=== PATIENT | female | born 1955 | race American Indian/Alaskan Native ===

== ENCOUNTER 2017-05-04 06:12 | Day surgery (SDC) | payer BC, OTHER ==
[2017-05-04] MEDS ORDERED: ECOTRIN PO ONE (06:36)
[2017-05-04] MEDS ORDERED: NACL 0.9% 500 ML 500 ML IV SCH (07:00)
[2017-05-04 07:22] LABS: Basophils % (Auto) 0.7 % (0.0-1.8); Eosinophils % (Auto) 5.4 % (0.0-4.3); Hematocrit 36.8 % (30.3-42.9); Mean Corpuscular HGB Conc 33 % (30-34); Mean Corpuscular Hemoglobin 28 pg (28-32); Mean Corpuscular Volume 85 fl (79-97); Platelet Count 256 K/mm3 (140-440); Red Blood Count 4.32 M/mm3 (3.65-5.03); White Blood Count 5.3 K/mm3 (4.5-11.0)
[2017-05-04 07:39] LABS: Anion Gap 13 mmol/L; Blood Urea Nitrogen 16 mg/dL (7-17); Calcium 9.4 mg/dL (8.4-10.2); Carbon Dioxide 27 mmol/L (22-30); Chloride 104.3 mmol/L (98-107); Glucose 106 mg/dL (65-100); Potassium 4.3 mmol/L (3.6-5.0); Sodium 140 mmol/L (137-145)
[2017-05-04 07:52] LABS: INR 0.95 (0.87-1.13)
[2017-05-04] MEDS ORDERED: HEPARIN/NS 5000 UNIT/500ML(CATH LAB) 1,000 ML IR ONE (08:15)
[2017-05-04] MEDS ORDERED: CALAN ONE (08:16)
[2017-05-04] MEDS ORDERED: NITROGLYCERIN SYRINGE 0 ML ONE (08:16)
[2017-05-04] MEDS ORDERED: HEPARIN 10,000 UNITS/10 ML ONE (08:16)
[2017-05-04] MEDS ORDERED: HEPARIN/NS 5000 UNIT/500ML(CATH LAB) 500 ML IR ONE (09:12)
[2017-05-04] MEDS: VERSED ONE ×3 (09:33→09:50)
[2017-05-04] MEDS: XYLOCAINE 2% INFILTRATI ONE ×3 (09:44→09:52)
[2017-05-04] MEDS: SUBLIMAZE ONE ×3 (09:44→09:51)
--- NOTE | 2017-05-04 10:56 | Discharge Summary ---
Short Stay Discharge Plan Activity: advance as tolerated Weight Bearing Status: Partial Weight Bearing Diet: low fat, low cholesterol, low salt Wound: keep clean and dry Special Instructions: no heavy lifting (3 days) Follow up with: MONI CHAMPAGNE MD [Primary Care Provider] - 7 Days MAURO MARTINEZ MD [Staff Physician] - 7 Days
[2017-05-04] MEDS ORDERED: NACL 0.9% 1000 ML 1,000 ML IV SCH (11:00)
[2017-05-04] MEDS ORDERED: TYLENOL ONE (12:36)
[2017-05-04] MEDS ORDERED: TYLENOL PO PRN (12:36)
--- NOTE | 2017-05-04 13:58 | Operative Report ---
Operative Report Operative Report: Cardiac catheterization procedure report Patient is a 61-year-old woman who presents for an outpatient cardiac catheterization. 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 Right and left heart catheterization was recommended. Procedures: Right and left heart catheterization Coronary angiography Left ventricular angiography The patient was prepped and draped in a sterile fashion after informed consent. The right femoral arterial vein were entered using the standard technique. A 6 Kazakh sheath was placed in the artery and an 8 Kazakh sheath in the vein. Right heart catheterization was performed using a [place]-Jeanette catheter which was advanced to the pulmonary artery position. A #4 right Ludmila catheter was advanced into the left ventricle. Simultaneous right and left heart filling pressures were measured. Cardiac output was measured using the thermal dilution method. The right heart catheter was then withdrawn and pressures measured in the right ventricle and right atrial positions. Following this, ventricle angiography was then performed with a hand injection via the right Ludmila catheter. The right Ludmila catheter was then withdrawn from the ventricle, slowly from the apical position, through the mid ventricle, through the outflow tract and across the aortic valve. Pressures were measured in these various positions. The right Ludmila catheter was used for right coronary angiography, following which we exchanged for a left Ludmila catheter was used for left carotid angiography. Catheters were removed, sheath removed and hemostasis over the arterial position achieved using an Angio-Seal device. Manual compression was used for the venous site. Patient was returned to the post procedure unit in stable condition. There were no effusions. Findings: Hemodynamics The right atrial pressure was 18-20, right ventricle pressure 50/20. Pulmonary artery pressure was 50/30. The mean pulmonary artery wedge pressure was 25. Left ventricle end-diastolic pressure was 25-30. Cardiac output was 5.7 L/m. Ascending aortic pressure was 174/84. On serial pullback from the left ventricular apex, through the mid cavity, through the outflow tract and across the aortic valve, there was minimal to no significant pressure gradient. Coronary angiography: Left main coronary artery was angiographically normal. The left anterior descending artery and its diagonal branches were angiographically normal. Minimal irregularities were noted of the mid LAD. The circumflex artery and its obtuse marginal branches were angiographically normal. The right coronary artery was dominant and similarly angiographically normal. Ventricle angiography revealed left ventricular systolic function at lower limits of normal, ejection fraction 50%. Impression: Moderate to severe increase in right and left heart filling pressures, moderate pulmonary hypertension. No significant intraventricular or left ventricular outflow tract gradient on catheter pullback. No significant coronary artery disease, essentially, angiographically normal coronary arteries. Left ventricle is of function at the lower limits of normal, ejection fraction 50%.
[2017-05-04 14:53] VITALS: BP 171/69
== END 2017-05-04 15:55 | disposition home or self-care (01) ==
LOC: OPU 06:12
PROVIDERS: ATTEND Internal Medicine Cardiovascular Disease
DX: I27.2 Other secondary pulmonary hypertension (principal)
CPT/HCPCS: 36415; 80048; 85025; 85610; 85730; 93005; 93010; 93460; C1760; C1894; J1644; J2250; J3010; J7040; Q9967

== ENCOUNTER 2018-03-11 06:30 | Emergency (ER) | payer BC ==
[2018-03-11 07:19] VITALS: BP 119/64
[2018-03-11 07:43] LABS: Hematocrit 25.9 % (30.3-42.9); Hemoglobin 8.6 gm/dl (10.1-14.3); Mean Corpuscular HGB Conc 33 % (30-34); Mean Corpuscular Hemoglobin 27 pg (28-32); Mean Corpuscular Volume 82 fl (79-97); Platelet Count 652 K/mm3 (140-440); Red Blood Count 3.16 M/mm3 (3.65-5.03); Red Cell Distribution Width 14.5 % (13.2-15.2)
[2018-03-11 07:51] LABS: BUN/Creatinine Ratio 9; Blood Urea Nitrogen 7 mg/dL (7-17); Calcium 8.9 mg/dL (8.4-10.2); Hemolysis Index 0
== END 2018-03-11 09:14 | disposition left against medical advice (07) ==
LOC: ED 06:30
DX: Z48.01 Encounter for change or removal of surgical wound dressing (principal); I10 Essential (primary) hypertension; M19.90 Unspecified osteoarthritis, unspecified site; Z88.5 Allergy status to narcotic agent; Z53.21 Procedure and treatment not carried out due to patient leaving prior to being seen by health care provider
CPT/HCPCS: 36415; 80048; 85027; 87116

== ENCOUNTER 2018-03-11 10:22 | Outpatient (CLI) | payer BC ==
--- NOTE | 2018-03-11 14:17 | Cat Scan Report ---
FINAL REPORT EXAM: CT ABDOMEN PELVIS W CON HISTORY: INTESTINAL ADHESIONS WITH COMPLETE OBSTRUCTION TECHNIQUE: CT of the abdomen and pelvis with IV contrast. Coronal and sagittal reconstructed imaging provided. PRIORS: None currently available. FINDINGS: ABDOMEN: Partially imaged moderate to large left pleural effusion with adjacent compressive atelectasis identified. Mild scarring or discoid subsegmental atelectasis at the right lung base. Images of the heart are unremarkable. Subcapsular fluid collection at the upper posterior spleen measures 4.5 x 8.5 cm and may represent a subcapsular hematoma seroma, or developing abscess. Uniform enhancement of the spleen is otherwise noted. Mild fatty liver. No suspicious enhancement or lesions. Gallbladder, stomach, pancreas, adrenals, and kidneys are unremarkable. No hydronephrosis. Adjacent to the pancreatic tail, there is a small fluid collection with wall thickening and rim enhancement which may represent a small abscess, pseudocyst, or seroma. Adjacent to the 4th portion of the duodenum/jejunum is another rim enhancing fluid collection with irregular wall measuring 2.6 x 2.2 cm. In the lower midline abdomen at the level of the bifurcation there is a lobulated rim enhancing fluid collection measuring 7.9 x 4.6 cm with surrounding stranding. Nearby surgical clips identified. The moderate distended proximal small bowel loops demonstrate an abrupt transition here near the surgical clip suggesting a high-grade incomplete or developing complete obstruction. Air-fluid levels in the small bowel loops identified. Another complex fluid collection with gas and surrounding irregular rim enhancement is noted anterior to the uterus extending into the left adnexa and into the posterior uterus. The anterior collection measures 9.5 x 1.9 cm. The collection in the left adnexa measures 10.4 x 3.3 cm and the collection in the cul-de-sac measures 7.7 x 6.6 cm. Small abscess in the right colonic gutter measures 2.2 cm. Diastasis recti with a broad-based protrusion. Right ventral anterior abdominal wall irregular fluid collection with rim enhancement measures 7.5 x 5.9 cm. Pocket of free air in the diastasis recti and stranding toward the umbilicus noted. Focal area of dehiscence may be present. Subcutaneous gas in the left paramedian left lower quadrant soft tissues with stranding extending to the surface of the skin suggest a focal area of dehiscence. No nearby skin thickening noted. Another ventral wall abscess in the left mid abdomen on series 3:29 measures 4.3 x 1.7 cm. Thickening of the abdominus rectus muscle bilaterally in the lower half of the abdomen suggest myositis and or postsurgical changes. [id number] stool throughout the colon without wall thickening or inflammatory changes. Appendix is normal. Terminal ilium is unremarkable. High-grade incomplete or developing complete obstruction of the proximal small bowel loops with a transition point at the mid abdominal abscess where surgical clips are present. The remainder of the distal small bowel loops demonstrate contrasts and are decompressed. Mild anasarca noted. PELVIS: Images of the bladder are unremarkable. Images of the uterus are unremarkable. No pelvic adenopathy. Inguinal regions are unremarkable. Bones: No suspicious osseous lesions on this limited examination of the skeleton. Metastatic disease better evaluated with bone scan. Degenerative changes are in the spine. IMPRESSION: Multiple intra-abdominal and pelvic abscesses. Stranding of the anterior abdominal wall suggests cellulitis and myositis. Small amount of free air identified. Stranding extending to the skin around the umbilicus and the left lower quadrant soft tissues suggests focal areas of dehiscence. Largest abscesses are present within the mid abdomen and pelvis. High-grade incomplete or developing complete obstruction of the proximal small bowel loops with transition point in the mid abdomen where surgical artifacts and a intra-abdominal abscess is present. Moderate to large partially imaged left pleural effusion with adjacent compressive atelectasis. Possible infiltrates. Sub capsular fluid collection at the spleen may represent abscess, seroma, or possible subcutaneous hematoma. Mild fatty liver.
== END 2018-03-11 10:23 | disposition home or self-care (01) ==
LOC: CT 10:22
PROVIDERS: ATTEND Surgery
DX: K56.52 Intestinal adhesions [bands] with complete obstruction (principal); L02.211 Cutaneous abscess of abdominal wall; K63.0 Abscess of intestine; J90 Pleural effusion, not elsewhere classified; J98.11 Atelectasis; K76.0 Fatty (change of) liver, not elsewhere classified; M47.9 Spondylosis, unspecified
CPT/HCPCS: 74177; Q9967

== ENCOUNTER 2018-03-16 07:46 | Day surgery (SDC) | payer BC ==
[2018-03-16] MEDS ORDERED: VERSED IV NR (08:25)
[2018-03-16 08:56] LABS: Basophils # (Auto) 0.1 K/mm3 (0.0-0.1); Basophils % (Auto) 0.5 % (0.0-1.8); Eosinophils # (Auto) 0.2 K/mm3 (0.0-0.4); Eosinophils % (Auto) 1.2 % (0.0-4.3); Hematocrit 25.6 % (30.3-42.9); Hemoglobin 8.2 gm/dl (10.1-14.3); Lymphocytes % (Auto) 14.1 % (13.4-35.0); Mean Corpuscular HGB Conc 32 % (30-34); Mean Corpuscular Volume 81 fl (79-97); Monocytes # (Auto) 1.7 K/mm3 (0.0-0.8); Monocytes % (Auto) 12.3 % (0.0-7.3); Platelet Count 756 K/mm3 (140-440); Red Blood Count 3.18 M/mm3 (3.65-5.03); Red Cell Distribution Width 14.7 % (13.2-15.2)
[2018-03-16] MEDS ORDERED: SODIUM CHLORIDE FLUSH SYRINGE 10 ML IV NR (09:00)
[2018-03-16 09:05] LABS: BUN/Creatinine Ratio 8; Blood Urea Nitrogen 8 mg/dL (7-17); Calcium 9.3 mg/dL (8.4-10.2); Hemolysis Index 100
[2018-03-16 09:06] LABS: INR 1.2 (0.87-1.13)
[2018-03-16 09:07] LABS: Partial Thromboplastin Time 37.4 Sec. (24.2-36.6)
[2018-03-16 09:19] LABS: Mean Corpuscular Hemoglobin 26 pg (28-32)
--- NOTE | 2018-03-16 10:42 | Short Stay Summary ---
Short Stay Documentation Date of service: 03/16/18 - History Principal diagnosis: Abscess, pleural fluid Past Surgical History: bowel surgery Social history: no significant social history - Allergies and Medications Current Medications: Allergies codeine Allergy (Verified 02/05/16 07:51) Unknown Home Medications Medication Instructions Recorded Confirmed Last Taken Type Lisinopril [Zestril TAB] 40 mg PO QDAY 02/05/16 03/16/18 05/03/17 History NIFEdipine XL [Procardia Xl] 90 mg PO QDAY 02/05/16 03/16/18 05/03/17 History Zolpidem [Ambien] 5 mg PO QHS PRN #30 tablet 02/26/18 03/16/18 Unknown Rx oxyCODONE [Roxicodone TAB] 5 mg PO Q6H PRN #14 tablet 02/26/18 03/16/18 Unknown Rx Ipratropium/Albuterol Sulfate 1 ampul IH TIDRT 30 Days ampul.neb 03/01/1803/16 Unknown Rx [DUONEB *Not for PRN Use*] Hydrochlorothiazide [HCTZ] 25 mg PO DAILY 03/16/18 03/16/18 Unknown History Sulfamethoxazole/Trimethoprim 1 tab PO BID 03/16/18 03/16/18 Unknown History [Bactrim DS TAB] Active Medications Fentanyl (Sublimaze) 100 mcg IV ONCE ONE Stop: 03/16/18 08:26 Midazolam HCl (Versed) 5 mg IV ONCE ONE Stop: 03/16/18 08:26 Sodium Chloride (Sodium Chloride Flush Syringe 10 Ml) 10 ml IV PRN NR - Physical exam General appearance: no acute distress, obese Integumentary: no rash HEENT: Atraumatic Lungs: Normal air movement Breasts: deferred Heart: Regular rate Gastrointestinal: normal, other (post surgical changes) Female Genitourinary: deferred Rectal Exam: deferred Neurological: Normal gait, Normal speech - Brief post op/procedure progress note Date of procedure: 03/16/18 Pre-op diagnosis: Abscess, pleural fluid Post-op diagnosis: same Procedure: Thoracentesis, drain placement Anesthesia: local Surgeon: CHRISTEN RAMIRES Estimated blood loss: minimal Specimen disposition: to lab Condition: stable - Disposition Condition at discharge: Good Disposition: [id number] TO HOME OR SELFCARE Short Stay Discharge Plan Activity: advance as tolerated Weight Bearing Status: Weight Bear as Tolerated Diet: regular Wound: keep clean and dry, per your surgeon's advice Follow up with: MONI CHAMPAGNE MD [Primary Care Provider] - 7 Days
[2018-03-16] MEDS ORDERED: SUBLIMAZE IV NR (11:00)
--- NOTE | 2018-03-16 11:12 | Cat Scan Report ---
Exam: CT-guided thoracentesis Clinical indication: Patient with a history of left pleural fluid Date: 03/16/2018 Procedure: Following an estimation of the risks benefits and alternatives; written informed consent was obtained. The patient was brought to the CT suite and placed in oblique position on the examination table. Initial timber treating tank operator images of the chest were performed and oral fluid was identified within the left pleural space. Patient's left flank was prepped and draped in the usual sterile fashion. 1% lidocaine was used for anesthesia. Using intermittent CT guidance, a 5 Vietnamese pigtail Yueh catheter was advanced into the pleural fluid. The trocar was removed and a total of 350 of serosanguineous fluid was aspirated. A sample was sent for cytology. The pigtail Yueh was removed and hemostasis achieved at the skin surface using manual compression. A sterile dressing was applied. Yueh The patient tolerated the procedure well. There were no immediate post procedure complications. Conscious sedation was performed under the guidance of radiologic nursing. Continuous cardiopulmonary monitoring was utilized. Impression: CT-guided thoracentesis with 350 mL's of serosanguineous fluid aspirated. Samples were sent for cytology.
--- NOTE | 2018-03-16 11:17 | Cat Scan Report ---
EXAM: CT-GUIDED DRAINAGE OF PELVIC ABSCESS CLINICAL INDICATION: PATIENT WITH MULTIPLE INTERCONNECTED PELVIC ABSCESSES DATE: 03/16/2018 PROCEDURE: Following examination of the risks, benefits and alternatives; written informed consent was obtained. This procedure is a continuation of the patient's previously dictated left thoracentesis. Following the successful left thoracentesis, attention was then turned to the abdomen. Initial stripping machine operator images the abdomen was performed and a multiloculated fluid collection in the pelvis was identified. An appropriate site was chosen along the left lower quadrant. The patient's abdomen was prepped and draped in the usual sterile fashion. 1% lidocaine was used for anesthesia. Under intermittent CT guidance, a 18-gauge 15 cm trocar needle was advanced into the fluid collection. There was prompt return of purulent fluid. A 0.035 guidewire was advanced through the needle and coiled within the fluid collection. The needle was removed. Following serial dilation, an 8 E[place]an pigtail catheter was advanced over the guidewire and the pigtail formed within the central aspect of the fluid collection. A total of 150 mL's of purulent fluid was aspirated. A sample was sent for laboratory analysis. The catheter was securely fastened to the skin surface using 2-0 Ethilon suture and a stable 6 device. The catheter was placed to ATUL bulb drainage. A sterile dressing was then applied. The patient tolerated both procedures well. There were no immediate post procedure complications. Conscious sedation or was administered under the guidance of radiologic nursing. Continuous cardiopulmonary monitoring was utilized. IMPRESSION: 1) CT-guided placement of 8 Eritrean pigtail drainage catheter into pelvic abscess with 150 mL's of purulent fluid aspirated. Samples were sent for laboratory analysis.
--- NOTE | 2018-03-16 12:27 | XRay Report ---
AP CHEST: HISTORY: Status post thoracentesis, left pleural effusion Recent CT-guided left thoracentesis was performed. Near-complete evacuation of the left pleural fluid is demonstrated. No evidence for pneumothorax. Mild discoid atelectasis is identified lateral to the right hilum. Minor atelectatic changes at the left lung base. Heart and mediastinal structures are within normal limits. IMPRESSION: No evidence for pneumothorax.
[2018-03-16 13:00] VITALS: BP 100/48
== END 2018-03-16 13:40 | disposition home or self-care (01) ==
LOC: CATHLABREC 07:46
PROVIDERS: ATTEND Radiology Diagnostic Radiology
DX: N73.9 Female pelvic inflammatory disease, unspecified (principal); J94.8 Other specified pleural conditions; Z79.01 Long term (current) use of anticoagulants
CPT/HCPCS: 10160; 32555; 36415; 71045; 77012; 80048; 85025; 85610; 85730; 87116; 88112; 88305; C1769; J2250; J3010

== ENCOUNTER 2018-03-24 11:41 | Outpatient (CLI) | payer BC ==
[2018-03-24 12:07] LABS: Basophils % (Auto) 0.4 % (0.0-1.8); Eosinophils # (Auto) 0.2 K/mm3 (0.0-0.4); Eosinophils % (Auto) 1.5 % (0.0-4.3); Hematocrit 26.1 % (30.3-42.9); Hemoglobin 8.6 gm/dl (10.1-14.3); Lymphocytes % (Auto) 16.3 % (13.4-35.0); Mean Corpuscular HGB Conc 33 % (30-34); Mean Corpuscular Hemoglobin 26 pg (28-32); Mean Corpuscular Volume 79 fl (79-97); Monocytes # (Auto) 0.9 K/mm3 (0.0-0.8); Monocytes % (Auto) 7.7 % (0.0-7.3); Platelet Count 797 K/mm3 (140-440); Red Blood Count 3.28 M/mm3 (3.65-5.03); Red Cell Distribution Width 14.9 % (13.2-15.2)
[2018-03-24 12:27] LABS: BUN/Creatinine Ratio 6; Blood Urea Nitrogen 4 mg/dL (7-17); Calcium 9.3 mg/dL (8.4-10.2); Hemolysis Index 2
== END 2018-03-24 11:42 | disposition home or self-care (01) ==
LOC: LAB 11:41
PROVIDERS: ATTEND Surgery
DX: K56.52 Intestinal adhesions [bands] with complete obstruction (principal); R79.89 Other specified abnormal findings of blood chemistry; Z98.890 Other specified postprocedural states
CPT/HCPCS: 36415; 80048; 84134; 85025

== ENCOUNTER 2018-03-28 08:56 | Inpatient (IN) | payer BC ==
[2018-03-28] MEDS ORDERED: MILK OF MAGNESIA PO PRN (09:00)
[2018-03-28] MEDS ORDERED: ZOFRAN IV PRN (09:00)
[2018-03-28] MEDS ORDERED: SODIUM CHLORIDE FLUSH SYRINGE 10 ML IV PRN (09:00)
[2018-03-28] MEDS ORDERED: TYLENOL PO PRN (09:00)
[2018-03-28] MEDS ORDERED: MORPHINE IV PRN (09:00)
[2018-03-28 12:40] LABS: Basophils % (Auto) 0.4 % (0.0-1.8); Eosinophils # (Auto) 0.3 K/mm3 (0.0-0.4); Eosinophils % (Auto) 3.5 % (0.0-4.3); Hematocrit 25.9 % (30.3-42.9); Hemoglobin 8.6 gm/dl (10.1-14.3); Lymphocytes # (Auto) 2.1 K/mm3 (1.2-5.4); Lymphocytes % (Auto) 21.8 % (13.4-35.0); Mean Corpuscular HGB Conc 33 % (30-34); Mean Corpuscular Hemoglobin 26 pg (28-32); Mean Corpuscular Volume 79 fl (79-97); Monocytes % (Auto) 10.3 % (0.0-7.3); Platelet Count 748 K/mm3 (140-440); Red Blood Count 3.29 M/mm3 (3.65-5.03); Red Cell Distribution Width 15.3 % (13.2-15.2)
[2018-03-28 12:45] LABS: INR 1.19 (0.87-1.13); Partial Thromboplastin Time 36.9 Sec. (24.2-36.6)
[2018-03-28 12:46] LABS: BUN/Creatinine Ratio 9; Blood Urea Nitrogen 6 mg/dL (7-17); Calcium 9.3 mg/dL (8.4-10.2); Hemolysis Index 0
[2018-03-28] MEDS: PEPCID IV SCH ×2 (13:14→22:42)
[2018-03-28] MEDS: SODIUM CHLORIDE FLUSH SYRINGE 10 ML IV SCH ×2 (13:15→22:42)
[2018-03-28] MEDS ORDERED: LOVENOX SUB-Q ONE (14:00)
--- NOTE | 2018-03-28 16:32 | XRay Report ---
FINAL REPORT EXAM: XR CHEST 1V AP HISTORY: R arm PICC placement TECHNIQUE: Frontal chest x-ray. PRIORS: Chest x-ray February 27, 2018. FINDINGS: Cardiac silhouette is within normal limits. Left perihilar peribronchial thickening. Left pleural effusion with adjacent area of focal subsegmental atelectasis and or infiltrate. Appearance is decreased compared to the prior. No pneumothorax. Right lung remains clear. There are no suspicious osseous lesions. Right PICC line tip is near the cavoatrial junction. IMPRESSION: Left pulmonary findings may represent effusion with adjacent infiltrate or subsegmental atelectasis. Left peribronchial thickening may represent bronchitis/bronchiolitis, pneumonia, or asymmetrical left pulmonary vascular congestion. Overall decreased compared to prior.
--- NOTE | 2018-03-28 17:56 | History and Physical Report ---
History of Present Illness Date of examination: 03/28/18 Date of admission: 03/28/18 11:19 Chief complaint: Poor appetite History of present illness: 62-year-old female who was well-known to our service was directly admitted to the hospital due to malnutrition, poor oral intake, recurrent fevers, and multiple fluid collections. She originally presented on 02/17 with a bowel obstruction. She failed conservative management and was ultimately taken to the operating room. 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 That bowel was found to be completely necrotic and perforated. She ultimately ended up undergoing a resection with primary anastomosis. She was discharged from the hospital, but has had failure to complete her recovery. Her oral intake has remained poor. On subsequent CT examination, she was found to have a left pleural effusion as well as multiple fluid collections in the abdomen. She underwent a left thoracentesis by interventional radiology as well as a drain placement in the pelvis. She was seen weekly in the office. Each time, she reported that she felt as though she was getting better. Most recently, she reported that she was having recurrent fevers in the afternoon. Her oral intake remained minimal. However she was hydrating well. Bowel function was normal. She had no nausea or vomiting. Routine labs were ordered due to concerns about possible malnutrition. Pre-albumin was noted to be 10. White count was improved but still elevated at 12. Electrolytes were okay. In light of her wound care issues, malnutrition, poor oral intake, and the possible need for further drain placement, I requested that the patient come into the hospital so that we can hopefully resolve these issues and help her complete her recovery. Patient agreed. Of note, she was discharged on Levaquin for a presumed left lung and pneumonia. She completed a recent course of clindamycin and ciprofloxacin for the bacteria that grew out from her fluid aspiration. She reports that she is feeling better since the fluid under the umbilicus drained over the weekend. Past History Past Medical History: hypertension. denies: acute ME, diabetes Past Surgical History: , bowel surgery (small intestine resection and primary anastomosis and lysis of adhesions. ), Other (surgery for ectopic ) Social history: no significant social history, lives with family Family history: no significant family history Medications and Allergies Allergies Allergy/AdvReac Type Severity Reaction Status Date / Time codeine Allergy Unknown Verified 02/05/16 07:51 Home Medications Medication Instructions Recorded Confirmed Last Taken Type Lisinopril [Zestril TAB] 40 mg PO QDAY 02/05/16 03/16/18 05/03/17 History NIFEdipine XL [Procardia Xl] 90 mg PO QDAY 02/05/16 03/16/18 05/03/17 History Zolpidem [Ambien] 5 mg PO QHS PRN #30 tablet 02/26/18 03/16/18 Unknown Rx oxyCODONE [Roxicodone TAB] 5 mg PO Q6H PRN #14 tablet 02/26/18 03/16/18 Unknown Rx Ipratropium/Albuterol Sulfate 1 ampul IH TIDRT 30 Days ampul.neb 03/01/1803/16 Unknown Rx [DUONEB *Not for PRN Use*] Hydrochlorothiazide [HCTZ] 25 mg PO DAILY 03/16/18 03/16/18 Unknown History Sulfamethoxazole/Trimethoprim 1 tab PO BID 03/16/18 03/16/18 Unknown History [Bactrim DS TAB] oxyCODONE /ACETAMINOPHEN [Percocet 1 tab PO Q6HR PRN #20 tablet 03/16/18 Unknown Rx 5/325] Active Meds: Active Medications Acetaminophen (Tylenol) 650 mg PO Q4H PRN PRN Reason: Pain MILD(1-3)/Fever >100.5/PAREKH Acetaminophen/Hydrocodone Bitart ([place] 5/325) 2 each PO Q6H PRN PRN Reason: Pain, Moderate (4-6) Famotidine (Pepcid) 20 mg IV BID [facility] Last Admin: 03/28/18 13:14 Dose: 20 mg Magnesium Hydroxide (Milk Of Magnesia) 30 ml PO Q4H PRN PRN Reason: Constipation Morphine Sulfate (Morphine) 2 mg IV Q4H PRN PRN Reason: Pain, Moderate (4-6) Ondansetron HCl (Zofran) 4 mg IV Q8H PRN PRN Reason: Nausea And Vomiting Sodium Chloride (Sodium Chloride Flush Syringe 10 Ml) 10 ml IV BID [facility] Last Admin: 03/28/18 13:15 Dose: 10 ml Sodium Chloride (Sodium Chloride Flush Syringe 10 Ml) 10 ml IV PRN PRN PRN Reason: LINE FLUSH Review of Systems - Constitutional weight loss, fever, fatigue, poor appetite, no chills - Cardiovascular no chest pain, no orthopnea, no rapid/irregular heart beat - Respiratory no cough, no cough with sputum, no hemoptysis, no shortness of breath, no wheezing - Gastrointestinal abdominal pain (only at drain site), loss of appetite (but improving lately), no nausea, no vomiting, no diarrhea, no constipation - Genitourinary Genitourinary: no dysuria - Integumentary wounds (2 on abdominal wall), no rash Exam - General physical appearance Positive: well developed, no distress, no pain, other (she looks better) - Eyes Positive: normal occular movement - Respiratory Positive: normal expansion, normal respiratory effort, clear to auscultation - Cardiovascular Rhythm: regular - Abdomen Abdomen: Present: soft, bowel sounds normal, wound (lower midline wound is clean. Periumbilical wound with small cavity. No further drainage. No erythema. ), surgical scars (well healed), other (left ATUL drain with minimal thick yellow drainage). Absent: tender, distended, guarding, rigid - Neurologic Neurologic: alert and oriented to time, place and person, motor strength and sensation are grossly intact - Psychiatric Psychiatric: appropriate mood/affect, intact judgment & insight Results - Labs 03/28/18 12:02 03/28/18 12:02 Abnormal lab results 03/28/18 03/28/18 03/28/18 Range/Units 12:02 12:02 12:02 RBC 3.29 L (3.65-5.03) M/mm3 Hgb 8.6 L (10.1-14.3) gm/dl Hct 25.9 L (30.3-42.9) % MCH 26 L (28-32) pg RDW 15.3 H (13.2-15.2) % Plt Count 748 H (140-440) K/mm3 [place] % (Auto) 10.3 H (0.0-7.3) % [place] # 1.0 H (0.0-0.8) K/mm3 PT 15.8 H (12.2-14.9) Sec. INR 1.19 H (0.87-1.13) APTT 36.9 H (24.2-36.6) Sec. BUN 6 L (7-17) mg/dL Diabetes panel 03/28/18 Range/Units 12:02 Sodium 137 (137-145) mmol/L Potassium 4.3 (3.6-5.0) mmol/L Chloride 100.2 (98-107) mmol/L Carbon Dioxide 26 (22-30) mmol/L BUN 6 L (7-17) mg/dL Creatinine 0.7 (0.7-1.2) mg/dL Glucose 86 (65-100) mg/dL Calcium 9.3 (8.4-10.2) mg/dL Calcium panel 03/28/18 Range/Units 12:02 Calcium 9.3 (8.4-10.2) mg/dL Pituitary panel 03/28/18 Range/Units 12:02 Sodium 137 (137-145) mmol/L Potassium 4.3 (3.6-5.0) mmol/L Chloride 100.2 (98-107) mmol/L Carbon Dioxide 26 (22-30) mmol/L BUN 6 L (7-17) mg/dL Creatinine 0.7 (0.7-1.2) mg/dL Glucose 86 (65-100) mg/dL Calcium 9.3 (8.4-10.2) mg/dL Adrenal panel 03/28/18 Range/Units 12:02 Sodium 137 (137-145) mmol/L Potassium 4.3 (3.6-5.0) mmol/L Chloride 100.2 (98-107) mmol/L Carbon Dioxide 26 (22-30) mmol/L BUN 6 L (7-17) mg/dL Creatinine 0.7 (0.7-1.2) mg/dL Glucose 86 (65-100) mg/dL Calcium 9.3 (8.4-10.2) mg/dL - Imaging Chest x-ray: report reviewed, image reviewed CT scan - abdomen: image reviewed CT scan - pelvis: image reviewed Assessment and Plan - Patient Problems (1) Malnutrition following gastrointestinal surgery Current Visit: Yes Status: Acute Plan to address problem: Patient suffering from protein/calorie malnutrition as a result for G.I. surgery. Will have line placed and start TPN until oral intake is improved. Time=45min (2) Fever Current Visit: Yes Status: Acute Plan to address problem: Due to her recurrent fevers, I will ask infectious disease to consult. We will get their opinion as to whether she should remain on antibiotics. If so what kind and for how long. (3) Multiple wounds of skin Current Visit: Yes Status: Acute Plan to address problem: I will ask wound care to assist with the assessment and management. (4) Intraabdominal fluid collection Current Visit: Yes Status: Acute Plan to address problem: Will obtain a CT scan to reassess the fluid collections. We'll see if we can remove the current drain. We will see if the left upper quadrant fluid collection would benefit from a drain placement.
--- NOTE | 2018-03-28 17:57 | Cat Scan Report ---
FINAL REPORT EXAM: CT ABDOMEN PELVIS W CON HISTORY: Re-evaluate fluid collections TECHNIQUE: Spiral CT scanning of the abdomen and pelvis after the uneventful administration of IV contrast. Multiplanar reformations. PRIORS: 11 Mar 2018. FINDINGS: Abdomen: Visualized lung bases show patchy and partially confluent opacities bilaterally, left greater than right, decreased from comparison. Very small bilateral pleural effusions, left greater than right, also decreased. Left subpleural or possible perisplenic low-density fluid collection measuring 5.7 x 2.5 cm decreased in size. No radiopaque gallstones. Stomach incompletely or nondistended, with some wall and fold thickening, but no significant perigastric fat stranding. Liver without significant abnormality. Spleen without significant abnormality. Pancreas without significant abnormality. Kidneys without significant abnormality. Adrenal glands without significant abnormality. Pelvis: Soft tissue defect and probable postsurgical change in the left periumbilical abdominal wall, with very small, ring-enhancing fluid collection containing small gas bubble measuring approximately 2 x 1 cm in maximal cross-sectional diameter, more discrete or organized. Mild thickening of underlying left rectus abdominus muscle about the same. Percutaneous pigtail catheter noted in anterior aspect of left lower quadrant, with near complete resolution of ring-enhancing fluid collections noted previously. Very small, residual fluid collection noted in the pelvic cul-de-sac region measuring 2 x 1.4 cm in cross-sectional diameter. Postsurgical change and anastomosis in probable small bowel located in mid lower abdominopelvic region. Multiple loops of prominent small bowel and colon containing gas, fluid and considerable amount of stool without discrete transition point. No apparent pneumatosis. Appendix within normal limits. Generalized mesenteric fat stranding or possible edema scattered in the abdomen and pelvis. No significant free peritoneal fluid or significant adenopathy. Abdominal aorta non-aneurysmal. Degenerative changes in thoracolumbar spine. IMPRESSION: 1. Interval placement of percutaneous drainage catheter in left lower quadrant and near complete resolution of ring-enhancing fluid collections noted previously, with small residual in the pelvic cul-de-sac region. 2. Small fluid collection in left subpleural or possible perisplenic region, also decreased in size. 3. Nonspecific bowel gas pattern suggesting adynamic ileus, which may be reactive, secondary to constipation or associated with nonspecific postinflammatory change, including diarrhea or enteritis. Correlate clinically. 4. Findings which may represent bibasilar atelectasis, mild infiltrates or postinflammatory change and very small bilateral pleural effusions, decreased in the interval.
[2018-03-29] MEDS: NORCO 5/325 PO PRN (03:53)
[2018-03-29 07:13] LABS: BUN/Creatinine Ratio 7; Blood Urea Nitrogen 4 mg/dL (7-17); Calcium 8.9 mg/dL (8.4-10.2); Hemolysis Index 0
[2018-03-29] MEDS ORDERED: DIAMOX PO ONE (08:30)
[2018-03-29] MEDS: SODIUM CHLORIDE FLUSH SYRINGE 10 ML IV SCH ×2 (10:50→21:43)
[2018-03-29] MEDS: PEPCID IV SCH ×2 (10:50→21:43)
--- NOTE | 2018-03-29 12:34 | Consultation ---
History of Present Illness - Reason for Consult Consult date: 03/29/18 leukocytosis Requesting physician: LUNA AGUAYO - History of Present Illness 62 years old female with history of HTN and murmur; recently discharged from [facility] from 02/17-03/01/18 after partial small bowel obstruction. She failed conservative management and was ultimately taken to the operating room on . 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 That bowel was found to be completely necrotic and perforated. She ultimately ended up undergoing a resection with primary anastomosis. On subsequent CT examination, she was found to have a left pleural effusion as well as multiple fluid collections in the abdomen. She underwent a left thoracentesis by interventional radiology as well as a PC drain placement in the left pelvis. She was seen weekly in the Surgical office. Per patient she was having daily fever since discharged at 101. However , per surgical team she reported fever during last office visit. A CBC showed White count still elevated at 12. Of note, she was discharged on Levaquin for a presumed left lung and pneumonia. Also, she completed a recent course of clindamycin and ciprofloxacin for the bacteria that grew out from her fluid aspiration - Bacteroides, Prevotella on 03/11/18 and Strep not group D on . Unfortunately, patient was readmitted 03/28/2018 due to persistent fever, nausea, vomiting. Upon admission, initial temperature was 98.5, heart rate 72, respiration 20, O2 sat 99, low pressure 120/60. White count 9.9. Hemoglobin 8.6. Platelets 748. Creatinine 0.6. Chest x-ray showed left peribronchial thickening. CT of the abdomen show Percutaneous drain in the left lower lateral with near complete resolution of the ring enhancing fluid collection. There is still a perisplenic collection of 5.7 x 2.5 cm. There is also patchy bibasilar opacities. Microbiology: Blood cultures: 02/18 negative Urine cultures: 02/18 10-100K usual skin [place] Respiratory cultures: Wound cultures: 03/11 Bacteroides, Prevotella Surgical 03/16 Strep not group D Stool cultures: Other: Current Antimicrobials: none Previous Antimicrobials: clinda cipro Past History Past Medical History: hypertension. denies: acute [place], diabetes Past Surgical History: , bowel surgery (small intestine resection and primary anastomosis and lysis of adhesions. ), Other (surgery for ectopic ) Social history: no significant social history, lives with family Family history: no significant family history Medications and Allergies Allergies Allergy/AdvReac Type Severity Reaction Status Date / Time codeine Allergy Unknown Verified 02/05/16 07:51 Home Medications Medication Instructions Recorded Confirmed Last Taken Type Lisinopril [Zestril TAB] 40 mg PO QDAY 02/05/16 03/16/18 05/03/17 History NIFEdipine XL [Procardia Xl] 90 mg PO QDAY 02/05/16 03/16/18 05/03/17 History Zolpidem [Ambien] 5 mg PO QHS PRN #30 tablet 02/26/18 03/29/18 Unknown Rx oxyCODONE [Roxicodone TAB] 5 mg PO Q6H PRN #14 tablet 02/26/18 03/29/18 Unknown Rx Ipratropium/Albuterol Sulfate 1 ampul IH TIDRT 30 Days ampul.neb 03/01/1803/16 Unknown Rx [DUONEB *Not for PRN Use*] Hydrochlorothiazide [HCTZ] 25 mg PO DAILY 03/16/18 03/29/18 03/27/18 History Sulfamethoxazole/Trimethoprim 1 tab PO BID 03/16/18 03/16/18 Unknown History [Bactrim DS TAB] oxyCODONE /ACETAMINOPHEN [Percocet 1 tab PO Q6HR PRN #20 tablet 03/16/1803/27/18 Rx 5/325] Active Meds: Active Medications Acetaminophen (Tylenol) 650 mg PO Q4H PRN PRN Reason: Pain MILD(1-3)/Fever >100.5/PAREKH Acetaminophen/Hydrocodone Bitart ([place] 5/325) 2 each PO Q6H PRN PRN Reason: Pain, Moderate (4-6) Last Admin: 03/29/18 03:53 Dose: 2 each Famotidine (Pepcid) 20 mg IV BID ASHLEY Last Admin: 03/29/18 10:50 Dose: 20 mg Magnesium Hydroxide (Milk Of Magnesia) 30 ml PO Q4H PRN PRN Reason: Constipation Morphine Sulfate (Morphine) 2 mg IV Q4H PRN PRN Reason: Pain, Moderate (4-6) Ondansetron HCl (Zofran) 4 mg IV Q8H PRN PRN Reason: Nausea And Vomiting Sodium Chloride (Sodium Chloride Flush Syringe 10 Ml) 10 ml IV BID ASHLEY Last Admin: 03/29/18 10:50 Dose: 10 ml Sodium Chloride (Sodium Chloride Flush Syringe 10 Ml) 10 ml IV PRN PRN PRN Reason: LINE FLUSH Physical Examination - Physical Exam Narrative exam: General appearance: Alert in NAD, conversant Eyes: anicteric sclerae, moist conjunctivae; no lid-lag; PERRLA HENT: Atraumatic; oropharynx clear with moist mucous membranes and no mucosal ulcerations/no oral thrush; normal hard and soft palate. Normal external ears. Neck: Trachea midline; supple, no thyromegaly or lymphadenopathy Lungs: decrease BS bibasilar CV: RRR, ++ murmurs Abdomen: Soft, mild TTP diffusely + drain with minimal seropurulence Extremities: No peripheral edema or extremity lymphadenopathy Skin: Normal temperature, turgor and texture; no rash, ulcers or subcutaneous nodules Psych: Appropriate affect, alert and oriented to person, place and time. Neuro: alert and oriented x 3. Moving all extermities Lines: right PICC - Constitutional Vitals: Vital Signs Temp Pulse Resp BP Pulse Ox 98.5 F 61 20 124/68 99 03/29/18 07:12 03/29/18 07:12 03/29/18 07:12 03/29/18 07:12 03/29/18 07:12 Temperature -Last 24 Hours Temperature 98.5 F Temperature 99.3 F Results - Labs CBC & Chem 7: 03/28/18 12:02 03/29/18 06:43 Labs: Abnormal lab results 03/28/18 03/28/18 03/28/18 Range/Units 12:02 12:02 12:02 RBC 3.29 L (3.65-5.03) M/mm3 Hgb 8.6 L (10.1-14.3) gm/dl Hct 25.9 L (30.3-42.9) % MCH 26 L (28-32) pg RDW 15.3 H (13.2-15.2) % Plt Count 748 H (140-440) K/mm3 [place] % (Auto) 10.3 H (0.0-7.3) % [place] # 1.0 H (0.0-0.8) K/mm3 PT 15.8 H (12.2-14.9) Sec. INR 1.19 H (0.87-1.13) APTT 36.9 H (24.2-36.6) Sec. Sodium (137-145) mmol/L BUN 6 L (7-17) mg/dL Creatinine (0.7-1.2) mg/dL Glucose (65-100) mg/dL 03/29/18 Range/Units 06:43 RBC (3.65-5.03) M/mm3 Hgb (10.1-14.3) gm/dl Hct (30.3-42.9) % MCH (28-32) pg RDW (13.2-15.2) % Plt Count (140-440) K/mm3 [place] % (Auto) (0.0-7.3) % [place] # (0.0-0.8) K/mm3 PT (12.2-14.9) Sec. INR (0.87-1.13) APTT (24.2-36.6) Sec. Sodium 136 L (137-145) mmol/L BUN 4 L (7-17) mg/dL Creatinine 0.6 L (0.7-1.2) mg/dL Glucose 102 H (65-100) mg/dL Assessment and Plan Assessment: 1) Intra-abdominal collections: LLQ and perisplenic -S/P PC drain placement in the left pelvis -Drainage grew Bacteroides, Prevotella on 03/11/18 and Strep not group D on . -treated with cipro/clindamycin outpatient -repeat CT still a perisplenic collection of 5.7 x 2.5 cm and showed percutaneous drain in the left lower lateral with near complete resolution of the ring enhancing fluid collection 2) Recent fever and leukocytosis: resolved. Likely from #1 3) Thrombocytosis: from intra-abdominal collections 4) Partial small bowel obstruction/recent bowel necrosis/perforation -She failed conservative management and was ultimately taken to the operating room on 02/24/18. 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 That bowel was found to be completely necrotic and perforated. S/P resection with primary anastomosis. 5) Left pleural effusion s/p left thoracentesis 6) Murmur Plan: -obtain C-reactive protein (CRP) -start zosyn - covers Bacteroides, Prevotella and Strep not group D -remove drain -IR eval to determine if she needs drainage of perisplenic collection -TTE Thank you for your consultation, will follow up with you. Arlette Crews MD Infectious Diseases Specialist [facility] ([facility] M [phone] O [phone]
[2018-03-29] MEDS: ZOSYN/NS 4.5GM/100ML 4.5 GM/100 ML VIAL IV SCH ×2 (15:36→21:43)
--- NOTE | 2018-03-29 18:45 | Event Note ---
Date: 03/29/18 Requested to review splenic fluid collection. Splenic fluid collection along the upper pole of the spleen/diaphragm which would require a trans-pleural drain. Current collection is 2.1 x 2.9 x 5.4 cm containing aprox 16 mL fluid (03/28/18). Prior collection was 3.9 x 5.5 x 8.5 cm containing aprox 91 mL fluid (03/11/18). The associated sympathetic effusion has also decreased in size. Given the significant decrease in size with conservative care, I would recommend continuing antibiotics/conservative care without drainage to prevent the risk of contaminating the sympathetic infusion and creating an empyema. Discussed with Dr. Sanabria.
--- NOTE | 2018-03-29 18:49 | Progress Note ---
Assessment and Plan - Patient Problems (1) Malnutrition following gastrointestinal surgery Current Visit: Yes Status: Acute Plan to address problem: Patient suffering from protein/calorie malnutrition as a result for G.I. surgery. Start TPN until oral intake is improved. Time=15min (2) Fever Current Visit: Yes Status: Acute Plan to address problem: No fevers over last 24hours. Pt feels better. appreciate ID consult. Will follow recs (3) Multiple wounds of skin Current Visit: Yes Status: Acute Plan to address problem: Appreciate wound care evaluation and recs. Will have patient f/u in wound clinic upon discharge. (4) Intraabdominal fluid collection Current Visit: Yes Status: Acute Plan to address problem: Appreciate the recommendation from Dr. Grissom. I spoke with Dr. Newell about the remaining fluid collection in the left upper quadrant. Due to the location, there is a high risk of contaminating the pleural space. The collection has significantly decreased compared to the last CT scan. He recommends, and I agree, that he would be best to continue with antibiotics and let this resolve on its own. Subjective Date of service: 03/29/18 Patient Reports: Positive: feels better, tolerating liquids well, other ( appetite is still poor). Negative: nausea, vomiting Objective Vital Signs - 12hr 03/29/18 07:12 Temperature 98.5 F Pulse Rate 61 Respiratory 20 Rate Blood Pressure 124/68 O2 Sat by Pulse 99 Oximetry - General physical appearance no distress, no pain, other (looks very happy today - best I have seen!) - Eyes normal occular movement - Respiratory normal expansion, normal respiratory effort - Abdomen soft, not tender, bowel sounds normal, not distended, wound (wounds are dressed) , other (ATUL with minimal drainage) - Psychiatric oriented to time, oriented to person, oriented to place, speech is normal, memory intact - Labs 03/28/18 12:02 03/29/18 06:43 Diabetes panel 03/29/18 Range/Units 06:43 Sodium 136 L (137-145) mmol/L Potassium 3.9 (3.6-5.0) mmol/L Chloride 102.0 (98-107) mmol/L Carbon Dioxide 27 (22-30) mmol/L BUN 4 L (7-17) mg/dL Creatinine 0.6 L (0.7-1.2) mg/dL Glucose 102 H (65-100) mg/dL Calcium 8.9 (8.4-10.2) mg/dL Calcium panel 03/29/18 Range/Units 06:43 Calcium 8.9 (8.4-10.2) mg/dL Phosphorus 3.70 (2.5-4.5) mg/dL Pituitary panel 03/29/18 Range/Units 06:43 Sodium 136 L (137-145) mmol/L Potassium 3.9 (3.6-5.0) mmol/L Chloride 102.0 (98-107) mmol/L Carbon Dioxide 27 (22-30) mmol/L BUN 4 L (7-17) mg/dL Creatinine 0.6 L (0.7-1.2) mg/dL Glucose 102 H (65-100) mg/dL Calcium 8.9 (8.4-10.2) mg/dL Adrenal panel 03/29/18 Range/Units 06:43 Sodium 136 L (137-145) mmol/L Potassium 3.9 (3.6-5.0) mmol/L Chloride 102.0 (98-107) mmol/L Carbon Dioxide 27 (22-30) mmol/L BUN 4 L (7-17) mg/dL Creatinine 0.6 L (0.7-1.2) mg/dL Glucose 102 H (65-100) mg/dL Calcium 8.9 (8.4-10.2) mg/dL - Imaging CT scan - abdomen: report reviewed, image reviewed CT Scan - head: report reviewed, image reviewed
[2018-03-29] MEDS ORDERED: TPN ADULT 1,800 ML IV SCH (20:00)
[2018-03-29] MEDS: AMBIEN PO PRN (23:12)
[2018-03-30] MEDS: NORCO 5/325 PO PRN (05:40)
[2018-03-30] MEDS: ZOSYN/NS 4.5GM/100ML 4.5 GM/100 ML VIAL IV SCH ×3 (05:40→22:21)
[2018-03-30 06:42] LABS: Alanine Aminotransferase 22 units/L (7-56); Albumin 2.5 g/dL (3.9-5); BUN/Creatinine Ratio 7; Blood Urea Nitrogen 5 mg/dL (7-17); Hemolysis Index 0
--- NOTE | 2018-03-30 09:26 | Progress Note ---
Assessment and Plan Assessment: 1) Intra-abdominal collections: LLQ and perisplenic -S/P PC drain placement in the left pelvis -Drainage grew Bacteroides, Prevotella on 03/11/18 and Strep not group D on . -treated with cipro/clindamycin outpatient -repeat CT still a perisplenic collection of 5.7 x 2.5 cm and showed percutaneous drain in the left lower lateral with near complete resolution of the ring enhancing fluid collection -CRP=12.7 2) Recent fever and leukocytosis: resolved. Likely from #1 3) Thrombocytosis: from intra-abdominal collections 4) Partial small bowel obstruction/recent bowel necrosis/perforation -She failed conservative management and was ultimately taken to the operating room on 02/24/18. 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 That bowel was found to be completely necrotic and perforated. S/P resection with primary anastomosis. 5) Left pleural effusion s/p left thoracentesis 6) Murmur Plan: -Per Dr. Newell due to the location, there is a high risk of contaminating the pleural space. The collection has significantly decreased compared to the last CT scan. He recommends, and Dr Sanabria agrees, to continue with antibiotics and let this resolve on its own. -continue zosyn - covers Bacteroides, Prevotella and Strep not group D -TPN -TTE - pending -upon discharge will do zosyn 4.5 g IV q8h total 2-3 weeks until 04/18/18. Repeat CT on 04/11. ID clinic F/u on 04/14. 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 I am rounding on 04/01 Thank you for your consultation, will follow up with you. Arlette Crews MD Infectious Diseases Specialist [facility] [place] M [phone] O [phone] Subjective Date of service: 03/30/18 Principal diagnosis: fever/leukocytosis Interval history: Microbiology: Blood cultures: 02/18 negative Urine cultures: 02/18 10-100K usual skin [place] Respiratory cultures: Wound cultures: 03/11 Bacteroides, Prevotella Surgical 03/16 Strep not group D Stool cultures: Other: Current Antimicrobials: zosyn 03/29 Previous Antimicrobials: clinda cipro Objective - Exam Narrative Exam: General appearance: Alert in NAD, conversant Eyes: anicteric sclerae, moist conjunctivae; no lid-lag; PERRLA HENT: Atraumatic; oropharynx clear with moist mucous membranes and no mucosal ulcerations/no oral thrush; normal hard and soft palate. Normal external ears. Neck: Trachea midline; supple, no thyromegaly or lymphadenopathy Lungs: decrease BS bibasilar CV: RRR, ++ murmurs Abdomen: Soft, mild TTP diffusely + drain with minimal seropurulence Extremities: No peripheral edema or extremity lymphadenopathy Skin: Normal temperature, turgor and texture; no rash, ulcers or subcutaneous nodules Psych: Appropriate affect, alert and oriented to person, place and time. Neuro: alert and oriented x 3. Moving all extermities Lines: right PICC - Constitutional Vitals: Vital Signs Temp Pulse Resp BP Pulse Ox 97.9 F 77 19 101/68 98 03/30/18 07:30 03/30/18 07:30 03/30/18 07:30 03/30/18 07:30 03/30/18 07:30 Temperature -Last 24 Hours Temperature 97.9 F Temperature 98.6 F - Labs CBC & Chem 7: 03/28/18 12:02 03/30/18 05:55 Labs: Abnormal lab results 03/29/18 03/30/18 Range/Units 06:43 05:55 Sodium 135 L (137-145) mmol/L BUN 5 L (7-17) mg/dL Glucose 124 H (65-100) mg/dL C-Reactive Protein 12.70 H (0.00-1.30) mg/dL Albumin 2.5 L (3.9-5) g/dL
[2018-03-30] MEDS: PEPCID IV SCH ×2 (11:41→22:21)
[2018-03-30] MEDS: SODIUM CHLORIDE FLUSH SYRINGE 10 ML IV SCH ×2 (11:41→23:50)
--- NOTE | 2018-03-30 17:23 | Progress Note ---
Assessment and Plan - Patient Problems (1) Malnutrition following gastrointestinal surgery Current Visit: Yes Status: Acute Plan to address problem: Patient suffering from protein/calorie malnutrition as a result for G.I. surgery. Cont TPN until oral intake is improved. Advance to Regular diet. Time=15min (2) Intraabdominal fluid collection Current Visit: Yes Status: Acute Plan to address problem: Will monitor LUQ fluid collection. Repeat CT planned for 04/11. ATUL drain with minimal amount. If there is a scant amount or serous fluid coming out near the time of discharge, will remove drain prior to discharge. (3) Multiple wounds of skin Current Visit: Yes Status: Acute Plan to address problem: Appreciate wound care evaluation and recs. Will have patient f/u in wound clinic upon discharge. (4) Fever Current Visit: Yes Status: Resolved Plan to address problem: afebrile x 48hrs. Seems to have resolved. Appreciate ID help very much. Subjective Date of service: 03/30/18 Patient Reports: Positive: feels better (2nd day in a row!), tolerating liquids well (wants to try regular food now), flatus, bowel movement, other (minimal output from drain). Negative: nausea, vomiting Objective Vital Signs - 12hr 03/30/18 03/30/18 03/30/18 05:40 07:30 09:30 Temperature 97.9 F Pulse Rate 77 Respiratory 18 19 16 Rate Blood Pressure 101/68 O2 Sat by Pulse 98 97 Oximetry 03/30/18 14:50 Temperature 97.8 F Pulse Rate 71 Respiratory 20 Rate Blood Pressure 108/63 O2 Sat by Pulse 100 Oximetry - General physical appearance no distress, no pain, other (looks great!) - Eyes normal occular movement - Respiratory normal expansion, normal respiratory effort - Abdomen soft, not tender, not distended, not guarding, not rigid, wound (dressings are dry (changed 2x/week)), other (Minimal slightly thick yellow fluid in bulb) - Psychiatric oriented to time, oriented to person, oriented to place, speech is normal, memory intact - Labs 03/28/18 12:02 03/30/18 05:55 Diabetes panel 03/30/18 Range/Units 05:55 Sodium 135 L (137-145) mmol/L Potassium 3.7 (3.6-5.0) mmol/L Chloride 99.2 (98-107) mmol/L Carbon Dioxide 24 (22-30) mmol/L BUN 5 L (7-17) mg/dL Creatinine 0.7 (0.7-1.2) mg/dL Glucose 124 H (65-100) mg/dL Calcium 9.0 (8.4-10.2) mg/dL AST 17 (5-40) units/L ALT 22 (7-56) units/L Alkaline Phosphatase 104 (35-129) units/L Total Protein 7.5 (6.3-8.2) g/dL Albumin 2.5 L (3.9-5) g/dL Calcium panel 03/30/18 Range/Units 05:55 Calcium 9.0 (8.4-10.2) mg/dL Phosphorus 3.90 (2.5-4.5) mg/dL Albumin 2.5 L (3.9-5) g/dL Pituitary panel 03/30/18 Range/Units 05:55 Sodium 135 L (137-145) mmol/L Potassium 3.7 (3.6-5.0) mmol/L Chloride 99.2 (98-107) mmol/L Carbon Dioxide 24 (22-30) mmol/L BUN 5 L (7-17) mg/dL Creatinine 0.7 (0.7-1.2) mg/dL Glucose 124 H (65-100) mg/dL Calcium 9.0 (8.4-10.2) mg/dL Adrenal panel 03/30/18 Range/Units 05:55 Sodium 135 L (137-145) mmol/L Potassium 3.7 (3.6-5.0) mmol/L Chloride 99.2 (98-107) mmol/L Carbon Dioxide 24 (22-30) mmol/L BUN 5 L (7-17) mg/dL Creatinine 0.7 (0.7-1.2) mg/dL Glucose 124 H (65-100) mg/dL Calcium 9.0 (8.4-10.2) mg/dL Total Bilirubin 0.60 (0.1-1.2) mg/dL AST 17 (5-40) units/L ALT 22 (7-56) units/L Alkaline Phosphatase 104 (35-129) units/L Total Protein 7.5 (6.3-8.2) g/dL Albumin 2.5 L (3.9-5) g/dL
[2018-03-30] MEDS ORDERED: TPN ADULT 1,800 ML IV SCH (20:00)
[2018-03-30] MEDS: AMBIEN PO PRN (23:43)
[2018-03-31] MEDS: ZOSYN/NS 4.5GM/100ML 4.5 GM/100 ML VIAL IV SCH ×3 (06:22→22:04)
[2018-03-31] MEDS: PEPCID IV SCH ×2 (09:42→21:33)
[2018-03-31] MEDS: SODIUM CHLORIDE FLUSH SYRINGE 10 ML IV SCH ×2 (09:43→22:32)
[2018-03-31 10:44] LABS: BUN/Creatinine Ratio 9; Blood Urea Nitrogen 7 mg/dL (7-17); Calcium 9.2 mg/dL (8.4-10.2); Hemolysis Index 0
[2018-03-31] MEDS ORDERED: TPN ADULT 1,800 ML IV SCH (20:00)
--- NOTE | 2018-03-31 20:26 | Progress Note ---
Assessment and Plan - Patient Problems (1) Malnutrition following gastrointestinal surgery Current Visit: Yes Status: Acute Plan to address problem: Patient suffering from protein/calorie malnutrition as a result for G.I. surgery. Cont TPN until oral intake is improved. Advanced to Regular diet. I think that if she continues to eat very well, we may not have to send her home with TPN. Time=15min (2) Intraabdominal fluid collection Current Visit: Yes Status: Acute Plan to address problem: Will monitor LUQ fluid collection. Repeat CT planned for 04/11. ATUL drain with minimal amount. If there is a scant amount or serous fluid coming out near the time of discharge, will remove drain prior to discharge. (3) Multiple wounds of skin Current Visit: Yes Status: Acute Plan to address problem: Appreciate wound care evaluation and recs. Will have patient f/u in wound clinic upon discharge. Subjective Date of service: 03/31/18 Patient Reports: Positive: no new complaints, feels better (appetite has improved. Ate all of the breakfast!), afebrile. Negative: nausea, vomiting Objective Vital Signs - 12hr 03/31/18 03/31/18 08:30 14:58 Temperature 98.4 F Pulse Rate 73 Pulse Rate [ 63 Left Radial] Respiratory 20 18 Rate Blood Pressure 117/68 O2 Sat by Pulse 99 100 Oximetry - General physical appearance no distress, no pain, other (smiling) - Respiratory normal expansion, normal respiratory effort - Psychiatric oriented to time, oriented to person, oriented to place, speech is normal, memory intact - Labs 03/28/18 12:02 03/31/18 09:50 Diabetes panel 03/31/18 Range/Units 09:50 Sodium 144 D (137-145) mmol/L Potassium 4.2 (3.6-5.0) mmol/L Chloride 109.0 H (98-107) mmol/L Carbon Dioxide 24 (22-30) mmol/L BUN 7 (7-17) mg/dL Creatinine 0.8 (0.7-1.2) mg/dL Glucose 150 H (65-100) mg/dL Calcium 9.2 (8.4-10.2) mg/dL Calcium panel 03/31/18 Range/Units 09:50 Calcium 9.2 (8.4-10.2) mg/dL Phosphorus 3.20 (2.5-4.5) mg/dL Pituitary panel 03/31/18 Range/Units 09:50 Sodium 144 D (137-145) mmol/L Potassium 4.2 (3.6-5.0) mmol/L Chloride 109.0 H (98-107) mmol/L Carbon Dioxide 24 (22-30) mmol/L BUN 7 (7-17) mg/dL Creatinine 0.8 (0.7-1.2) mg/dL Glucose 150 H (65-100) mg/dL Calcium 9.2 (8.4-10.2) mg/dL Adrenal panel 03/31/18 Range/Units 09:50 Sodium 144 D (137-145) mmol/L Potassium 4.2 (3.6-5.0) mmol/L Chloride 109.0 H (98-107) mmol/L Carbon Dioxide 24 (22-30) mmol/L BUN 7 (7-17) mg/dL Creatinine 0.8 (0.7-1.2) mg/dL Glucose 150 H (65-100) mg/dL Calcium 9.2 (8.4-10.2) mg/dL
[2018-03-31] MEDS: AMBIEN PO PRN (23:55)
[2018-04-01] MEDS: ZOSYN/NS 4.5GM/100ML 4.5 GM/100 ML VIAL IV SCH ×3 (05:55→23:01)
[2018-04-01 07:31] LABS: Hematocrit 22.8 % (30.3-42.9); Mean Corpuscular HGB Conc 31 % (30-34); Mean Corpuscular Volume 82 fl (79-97); Platelet Count 596 K/mm3 (140-440); Red Blood Count 2.77 M/mm3 (3.65-5.03); Red Cell Distribution Width 15.7 % (13.2-15.2)
[2018-04-01 07:45] LABS: Alanine Aminotransferase 15 units/L (7-56); Albumin 2.2 g/dL (3.9-5); BUN/Creatinine Ratio 16; Blood Urea Nitrogen 13 mg/dL (7-17); Calcium 9.5 mg/dL (8.4-10.2); Hemolysis Index 0
[2018-04-01 07:50] LABS: Mean Corpuscular Hemoglobin 25 pg (28-32)
--- NOTE | 2018-04-01 08:16 | Event Note ---
Date: 04/01/18 Critical labs noted. Spoke with nurse, Rebecca. this is mostly likely blood drawn from TPN line. Recheck with new stick.
--- NOTE | 2018-04-01 09:46 | Progress Note ---
Assessment and Plan Assessment: 1) Intra-abdominal collections: LLQ and perisplenic -S/P PC drain placement in the left pelvis -Drainage grew Bacteroides, Prevotella on 03/11/18 and Strep not group D on . -treated with cipro/clindamycin outpatient -repeat CT still a perisplenic collection of 5.7 x 2.5 cm and showed percutaneous drain in the left lower lateral with near complete resolution of the ring enhancing fluid collection -CRP=12.7 2) Recent fever and leukocytosis: resolved. Likely from #1 3) Thrombocytosis: from intra-abdominal collections 4) Partial small bowel obstruction/recent bowel necrosis/perforation -She failed conservative management and was ultimately taken to the operating room on 02/24/18. 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 That bowel was found to be completely necrotic and perforated. S/P resection with primary anastomosis. 5) Left pleural effusion s/p left thoracentesis 6) Murmur-TTE EF normal, mod AR Plan: -Per Dr. Newell due to the location, there is a high risk of contaminating the pleural space. The collection has significantly decreased compared to the last CT scan. He recommends, and Dr Sanabria agrees, to continue with antibiotics and let this resolve on its own. -continue zosyn - covers Bacteroides, Prevotella and Strep not group D -TPN -upon discharge will do zosyn 4.5 g IV q8h total 2-3 weeks until 04/18/18. Repeat CT on 04/11. ID clinic F/u on 04/14. Order sent to nurse case manager. I am signing off Thank you for your consultation, will follow up with you. Arlette Crews MD Infectious Diseases Specialist [facility] M [phone] O [phone] Subjective Date of service: 04/01/18 Principal diagnosis: fever/leukocytosis Interval history: Feels better no complaints. on TPN Microbiology: Blood cultures: 02/18 negative Urine cultures: 02/18 10-100K usual skin [place] Respiratory cultures: Wound cultures: 03/11 Bacteroides, Prevotella Surgical 03/16 Strep not group D Stool cultures: Other: Current Antimicrobials: zosyn 6/5 Previous Antimicrobials: clinda cipro Objective - Exam Narrative Exam: General appearance: Alert in NAD, conversant Eyes: anicteric sclerae, moist conjunctivae; no lid-lag; PERRLA HENT: Atraumatic; oropharynx clear with moist mucous membranes and no mucosal ulcerations/no oral thrush; normal hard and soft palate. Normal external ears. Neck: Trachea midline; supple, no thyromegaly or lymphadenopathy Lungs: decrease BS bibasilar CV: RRR, ++ murmurs Abdomen: Soft, mild TTP diffusely + drain with minimal seropurulence Extremities: No peripheral edema or extremity lymphadenopathy Skin: Normal temperature, turgor and texture; no rash, ulcers or subcutaneous nodules Psych: Appropriate affect, alert and oriented to person, place and time. Neuro: alert and oriented x 3. Moving all extermities Lines: right PICC - Constitutional Vitals: Vital Signs Temp Pulse Resp BP Pulse Ox 98.7 F 59 L 18 132/69 97 04/01/18 08:12 04/01/18 08:12 04/01/18 08:12 04/01/18 08:12 04/01/18 08:12 Temperature -Last 24 Hours Temperature 98.7 F Temperature 98.4 F Temperature 98.4 F - Labs CBC & Chem 7: 04/01/18 07:20 04/01/18 07:20 Labs: Abnormal lab results 03/31/18 04/01/18 04/01/18 Range/Units 09:50 07:20 07:20 RBC 2.77 L (3.65-5.03) M/mm3 Hgb 7.0 L (10.1-14.3) gm/dl Hct 22.8 L (30.3-42.9) % MCH 25 L (28-32) pg RDW 15.7 H (13.2-15.2) % Plt Count 596 H (140-440) K/mm3 Sodium 136 L D (137-145) mmol/L Potassium 6.9 H* D (3.6-5.0) mmol/L Chloride 109.0 H (98-107) mmol/L Glucose 150 H 585 H* (65-100) mg/dL Albumin 2.2 L (3.9-5) g/dL
--- NOTE | 2018-04-01 09:59 | Query- Nutrition ---
French Mejia____Elly Date:__04/01/2018 Police Shift Commander/CDS:__oneil Phone#:__[phone] Exercise your independent professional judgment when responding to query. Questions asked do not imply a particular answer is desired or expected. We greatly appreciate your clarification on this issue. Clinical Documentation States: 62-year-old female who was well-known to our service was directly admitted to the hospital due to malnutrition, poor oral intake, recurrent fevers, and multiple fluid collections. Taken from H&P note () on 03/28/18. Assessment and Plan: Malnutrition following gastrointestinal surgery Intraabdominal fluid collection Multiple wounds of skin Clinical Findings Show: 03/30/18 04/01/18 Albumin 2.5 L 2.2 L Please select the most appropriate option 3 [] Mild Malnutrition [] Mild - Moderate Malnutrition [] Moderate - Severe Malnutrition [] Severe Malnutrition Serum Albumin 2.8 to 3.4 g/dl or Pre-albumin 5 to 17 mg/dl1,2 Inadequate nutritional intake1,2,3,4 NPO > 5 days Weight loss: 5% in 1 month or 7.5% in 3 months or 10% in 6 months1, 3,4 BMI 16 to 18.4 or Weight <90% of ideal body weight1,2,3,4 Serum Albumin < 2.8 g/ dl1,2 Lymphocytes < 1500/ L2 Inadequate nutritional intake3, high stress e.g. major trauma, sepsis,pancreatitis, smith etc. Decubitus ulcers1,2, , skin breakdown2, easy hair pluckability2 Weight <80% standard for height2 Triceps skin fold <3 mm2 Mid-arm muscle circumference <15 cm2 Creatinine-height index <60% standard2 [ ] Cachexia [ ] Emaciated w/Malnutrition [ ] Other: [ ] Unable to determine [ ] Comment/Explanation: Present on Admission: [ ] Yes (Y) [ ] Clinically undeterminable (W) [ ] No ( N) Please also document response in your Progress Notes and/or Discharge Summary and indicate if the condition was present on admission. KATERIND
[2018-04-01] MEDS: SODIUM CHLORIDE FLUSH SYRINGE 10 ML IV SCH ×2 (10:23→23:01)
[2018-04-01] MEDS: PEPCID IV SCH ×2 (10:23→23:01)
[2018-04-01 11:42] LABS: Alanine Aminotransferase 16 units/L (7-56); Albumin 2.6 g/dL (3.9-5); BUN/Creatinine Ratio 18; Blood Urea Nitrogen 14 mg/dL (7-17); Calcium 9.2 mg/dL (8.4-10.2); Hemolysis Index 0
[2018-04-01] MEDS ORDERED: TPN ADULT 1,800 ML IV SCH (20:00)
[2018-04-01] MEDS ORDERED: KCL IV SCH (20:15)
[2018-04-01] MEDS ORDERED: D10W IV SCH (20:15)
--- NOTE | 2018-04-01 22:10 | Progress Note ---
Assessment and Plan - Patient Problems (1) Malnutrition following gastrointestinal surgery Current Visit: Yes Status: Acute Plan to address problem: Pt has improved significantly. Eating back to normal. Discussed in depth of taking in good nutrition. Pt feels confident that she can eating normally at home. Encouraged her to eat fish (she likes it) as well as Boost TID. Needs to eat a well balanced diet. We will check her prealbumin as an out-pt. If it shows decline, then we will order TPN from clinic. For now, will wean off TPN. Will not order TPN for home. Time=15min (2) Intraabdominal fluid collection Current Visit: Yes Status: Acute Plan to address problem: Will monitor LUQ fluid collection. Repeat CT planned for 04/11. ATUL drain with minimal amount. If there is a scant amount or serous fluid coming out near the time of discharge, will remove drain prior to discharge. (3) Multiple wounds of skin Current Visit: Yes Status: Acute Plan to address problem: Appreciate wound care evaluation and recs. Will have patient f/u in wound clinic upon discharge. Subjective Date of service: 04/01/18 Patient Reports: Positive: feels better (eating back to normal. Normal appetite now. ), tolerating a regular diet, afebrile. Negative: nausea, vomiting Objective Vital Signs - 12hr 04/01/18 04/01/18 16:29 20:11 Temperature 98.3 F 98.5 F Pulse Rate 68 70 Respiratory 20 16 Rate Blood Pressure 117/66 137/72 O2 Sat by Pulse 100 98 Oximetry - General physical appearance no distress, no pain - Eyes normal occular movement - Respiratory normal expansion, normal respiratory effort - Abdomen soft, not tender, not distended, not guarding, not rigid, wound (dressings dry) , other (minimal output in drain. Fluid in tubing is serous) - Integumentary no rash, no growths, no abnormal pigmentation - Psychiatric oriented to time, oriented to person, oriented to place, speech is normal, memory intact - Labs 04/01/18 07:20 04/01/18 10:56 Diabetes panel 04/01/18 04/01/18 Range/Units 07:20 10:56 Sodium 136 L D 138 (137-145) mmol/L Potassium 6.9 H* D 4.3 D (3.6-5.0) mmol/L Chloride 101.3 102.7 (98-107) mmol/L Carbon Dioxide 24 26 (22-30) mmol/L BUN 13 14 (7-17) mg/dL Creatinine 0.8 0.8 (0.7-1.2) mg/dL Glucose 585 H* 136 H (65-100) mg/dL Calcium 9.5 9.2 (8.4-10.2) mg/dL AST 18 21 (5-40) units/L ALT 15 16 (7-56) units/L Alkaline Phosphatase 81 94 (35-129) units/L Total Protein 6.8 8.0 (6.3-8.2) g/dL Albumin 2.2 L 2.6 L (3.9-5) g/dL Calcium panel 04/01/18 04/01/18 Range/Units 07:20 10:56 Calcium 9.5 9.2 (8.4-10.2) mg/dL Albumin 2.2 L 2.6 L (3.9-5) g/dL Pituitary panel 04/01/18 04/01/18 Range/Units 07:20 10:56 Sodium 136 L D 138 (137-145) mmol/L Potassium 6.9 H* D 4.3 D (3.6-5.0) mmol/L Chloride 101.3 102.7 (98-107) mmol/L Carbon Dioxide 24 26 (22-30) mmol/L BUN 13 14 (7-17) mg/dL Creatinine 0.8 0.8 (0.7-1.2) mg/dL Glucose 585 H* 136 H (65-100) mg/dL Calcium 9.5 9.2 (8.4-10.2) mg/dL Adrenal panel 04/01/18 04/01/18 Range/Units 07:20 10:56 Sodium 136 L D 138 (137-145) mmol/L Potassium 6.9 H* D 4.3 D (3.6-5.0) mmol/L Chloride 101.3 102.7 (98-107) mmol/L Carbon Dioxide 24 26 (22-30) mmol/L BUN 13 14 (7-17) mg/dL Creatinine 0.8 0.8 (0.7-1.2) mg/dL Glucose 585 H* 136 H (65-100) mg/dL Calcium 9.5 9.2 (8.4-10.2) mg/dL Total Bilirubin 0.40 0.50 (0.1-1.2) mg/dL AST 18 21 (5-40) units/L ALT 15 16 (7-56) units/L Alkaline Phosphatase 81 94 (35-129) units/L Total Protein 6.8 8.0 (6.3-8.2) g/dL Albumin 2.2 L 2.6 L (3.9-5) g/dL
[2018-04-02] MEDS: AMBIEN PO PRN (00:57)
[2018-04-02] MEDS: ZOSYN/NS 4.5GM/100ML 4.5 GM/100 ML VIAL IV SCH ×2 (05:39→15:19)
[2018-04-02 07:57] LABS: BUN/Creatinine Ratio 18; Blood Urea Nitrogen 14 mg/dL (7-17); Calcium 8.9 mg/dL (8.4-10.2); Hemolysis Index 0
[2018-04-02] MEDS: PEPCID IV SCH (11:20)
[2018-04-02] MEDS: SODIUM CHLORIDE FLUSH SYRINGE 10 ML IV SCH (11:22)
[2018-04-02] MEDS: NORCO 5/325 PO PRN (11:30)
--- NOTE | 2018-04-02 16:52 | Progress Note ---
Assessment and Plan - Patient Problems (1) Malnutrition following gastrointestinal surgery Current Visit: Yes Status: Acute Plan to address problem: Pt has improved significantly. Eating back to normal. Discussed in depth of taking in good nutrition. Pt feels confident that she can eating normally at home. Encouraged her to eat fish (she likes it) as well as Boost TID. Needs to eat a well balanced diet. We will check her prealbumin as an out-pt. If it shows decline, then we will order TPN from clinic. Will not order TPN for home. Time=15min (2) Intraabdominal fluid collection Current Visit: Yes Status: Acute Plan to address problem: Will monitor LUQ fluid collection. Repeat CT planned for 04/11. ATUL drain removed today. (3) Multiple wounds of skin Current Visit: Yes Status: Acute Plan to address problem: Discussed plan with case specialist. f/u entered into computer for wound clinic f/ u this week. Orders placed for home health to dressing changes weekly. Subjective Date of service: 04/02/18 Patient Reports: Positive: no new complaints, feels better, tolerating a regular diet, other (ready to go home). Negative: nausea, vomiting Objective Vital Signs - 12hr 04/02/18 07:45 Temperature 98.4 F Pulse Rate 62 Respiratory 20 Rate Blood Pressure 123/60 O2 Sat by Pulse 100 Oximetry - General physical appearance no distress, no pain, other (looks great) - Eyes normal occular movement - Respiratory normal expansion, normal respiratory effort - Abdomen soft, not tender, bowel sounds normal, not distended, not guarding, not rigid, wound (dressings dry), other (ATUL with serous drainage. Removed by . ) - Integumentary no rash, no growths, no abnormal pigmentation - Psychiatric oriented to time, oriented to person, oriented to place, speech is normal, memory intact - Labs 04/01/18 07:20 04/02/18 07:23 Diabetes panel 04/02/18 Range/Units 07:23 Sodium 138 (137-145) mmol/L Potassium 4.0 (3.6-5.0) mmol/L Chloride 103.8 (98-107) mmol/L Carbon Dioxide 25 (22-30) mmol/L BUN 14 (7-17) mg/dL Creatinine 0.8 (0.7-1.2) mg/dL Glucose 112 H (65-100) mg/dL Calcium 8.9 (8.4-10.2) mg/dL Calcium panel 04/02/18 Range/Units 07:23 Calcium 8.9 (8.4-10.2) mg/dL Phosphorus 3.20 (2.5-4.5) mg/dL Pituitary panel 04/02/18 Range/Units 07:23 Sodium 138 (137-145) mmol/L Potassium 4.0 (3.6-5.0) mmol/L Chloride 103.8 (98-107) mmol/L Carbon Dioxide 25 (22-30) mmol/L BUN 14 (7-17) mg/dL Creatinine 0.8 (0.7-1.2) mg/dL Glucose 112 H (65-100) mg/dL Calcium 8.9 (8.4-10.2) mg/dL Adrenal panel 04/02/18 Range/Units 07:23 Sodium 138 (137-145) mmol/L Potassium 4.0 (3.6-5.0) mmol/L Chloride 103.8 (98-107) mmol/L Carbon Dioxide 25 (22-30) mmol/L BUN 14 (7-17) mg/dL Creatinine 0.8 (0.7-1.2) mg/dL Glucose 112 H (65-100) mg/dL Calcium 8.9 (8.4-10.2) mg/dL
--- NOTE | 2018-04-02 16:59 | Discharge Summary ---
Providers - Providers Date of Admission: 03/28/18 11:19 Date of discharge: 04/02/18 Attending physician: LUNA SANABRIA MD 03/28/18 09:00 Consult to PICC Line RN [CONS] Routine Reason For Exam: Please place double lumen PICC line Type Line:: PICC Consult to Physician [CONS] Routine Comment: Consulting Provider: ARLETTE HOGAN Physician Instructions: Reason For Exam: leukocytosis 03/28/18 09:04 Consult to Dietitian/Nutrition [CONS] Routine Physician Instructions: Reason For Exam: Reason for Consult: Write/Manage TPN/PPN 03/28/18 09:22 Consult to Wound/ET Nurse [CONS] Routine Reason For Exam: wound eval - 2 wounds on abdominal wall 03/30/18 09:31 Consult to Case Management [CONS] Stat Services Needed at Discharge: Other Notified:: community relations representative Additional Physician Instructions: [facility] M [phone] O [phone] F [phone] OUTPATIENT PARENTERAL ANTIBIOTIC THERAPY ORDERS Diagnoses:intrabdominal abscess Antimicrobial administration: zosyn 4.5 g IV q8h total 2-3 weeks until 04/18/18. Repeat CT on 04/11. ID clinic F/ u on 04/14 Remove PICC line after last dose unless otherwise instructed. Lines:PICC Lab monitoring: CBC, CMP, CRP once a week preferly on Wednesday morning. Please fax results to [phone] and call [phone] for critical lab results. Arlette Grissom Date: 03/30/18 Primary care physician: MONI CHAMPAGNE Hospitalization Reason for admission: moderate malnutrition Condition: Stable Pertinent studies: CT abdomen/pelvis Procedures: PICC line placement Hospital course: uneventful. At admission, patient had moderate malnutrition with a pre-albumin of 10 (obtained as out-pt). Consult was obtained from ID. PICC line placed for TPN. CT reviewed with rad. Pt's PO intake improved. Wound care nurse saw patient and recommended wound care plan. Pt much improved at time of discharge. Disposition: DC/[place]-06 HOME [facility] Time spent for discharge: 20 min - Discharge Diagnoses (1) Malnutrition following gastrointestinal surgery Status: Acute Comment: recheck pre-albumin as out-pt. If not improving, will re-start TPN (2) Intraabdominal fluid collection Status: Acute Comment: Plan to re-CT on 04/11. f/u with ID on 04/14 (3) Multiple wounds of skin Status: Acute Comment: Pt to be seen in Wound clinic this week. HH to do first dressing change beginning of this week. Core Measure Documentation - Palliative Care Palliative Care/ Comfort Measures: Not Applicable - Core Measures Any of the following diagnoses?: none - VTE Discharge Requirements Deep Vein Thrombosis/Pulmonary Embolism Present on Admission: No Exam - Constitutional Vitals: Temp Pulse Resp BP Pulse Ox 98.4 F 62 20 123/60 100 04/02/18 07:45 04/02/18 07:45 04/02/18 07:45 04/02/18 07:45 04/02/18 07:45 General appearance: Present: no acute distress - EENT Eyes: Present: EOM intact - Respiratory Respiratory effort: normal - Cardiovascular Rhythm: regular - Abdominal General gastrointestinal: Present: soft, non-tender - Integumentary Integumentary: Present: clear, warm, dry - Psychiatric Psychiatric: appropriate mood/affect, intact judgment & insight Plan Follow up with: [facility] [Outside] - 7 Days (Please call on Wednesday for appointment to be seen that week with Dr. Sanabria) MONI CHAMPAGNE MD [Primary Care Provider] - 7 Days
[2018-04-02 17:18] VITALS: BP 117/58
== END 2018-04-02 20:51 | disposition home health service (06) | DRG 392 ==
LOC: UNDOADMIN 08:56 → 3A 08:56
PROVIDERS: ADMIT Surgery; ATTEND Surgery
PROC: 02HV33Z Insertion of Infusion Device into Superior Vena Cava, Percutaneous Approach (ICD-10-PCS; principal; 2018-03-28)
PROC: 3E0336Z Introduction of Nutritional Substance into Peripheral Vein, Percutaneous Approach (ICD-10-PCS; 2018-03-28)
DX: K91.2 Postsurgical malabsorption, not elsewhere classified (principal); J90 Pleural effusion, not elsewhere classified; R18.8 Other ascites; E44.0 Moderate protein-calorie malnutrition; D47.3 Essential (hemorrhagic) thrombocythemia; Z88.5 Allergy status to narcotic agent; Z79.899 Other long term (current) drug therapy; Y83.8 Other surgical procedures as the cause of abnormal reaction of the patient, or of later complication, without mention of misadventure at the time of the procedure; I10 Essential (primary) hypertension; Y93.89 Activity, other specified; Y92.89 Other specified places as the place of occurrence of the external cause; Z68.36 Body mass index [BMI] 36.0-36.9, adult
CPT/HCPCS: 36415; 71045; 74177; 80048; 80053; 82962; 83735; 84100; 85025; 85027; 85610; 85730; 86140; 93306; J1650; J2543; Q9967

== ENCOUNTER 2018-04-08 10:14 | Outpatient (CLI) | payer BC ==
[2018-04-08] MEDS ORDERED: XYLOCAINE TOPICAL 2% 5ML TP ONE (11:26)
[2018-04-08] MEDS ORDERED: XYLOCAINE TOPICAL 2% 5ML ONE (11:29)
== END 2018-04-08 10:15 | disposition home or self-care (01) ==
LOC: WOUND 10:14
PROVIDERS: ATTEND Surgery
DX: T81.89XA Other complications of procedures, not elsewhere classified, initial encounter (principal); I10 Essential (primary) hypertension; Y83.8 Other surgical procedures as the cause of abnormal reaction of the patient, or of later complication, without mention of misadventure at the time of the procedure; Y92.89 Other specified places as the place of occurrence of the external cause
CPT/HCPCS: 99215; G0463

== ENCOUNTER 2018-04-11 06:21 | Outpatient (CLI) | payer BC ==
[2018-04-11 07:01] LABS: Albumin 3.3 g/dL (3.9-5); BUN/Creatinine Ratio 9; Blood Urea Nitrogen 8 mg/dL (7-17); Calcium 9.4 mg/dL (8.4-10.2); Hemolysis Index 0
--- NOTE | 2018-04-11 15:31 | Cat Scan Report ---
FINAL REPORT EXAM: CT ABDOMEN PELVIS W CON HISTORY: ABSESS TECHNIQUE: CT abdomen and pelvis performed. Images extend from diaphragm to pubic symphysis. IV contrast was administered. Oral contrast was administered. Axial images and coronal and sagittal reformatted images were obtained. PRIORS: 03/28/2018 FINDINGS: There is unchanged right pleural effusion. There is unchanged scarring and or atelectasis in the right lower lobe. There is trace left pleural fluid. Again seen is a perisplenic fluid collection which could be subpleural or subcapsular location. It is smaller as compared to the prior, now measuring 3.7 x 2.3 by 3.1 cm, previously measuring 5.7 cm largest dimension. There is no abdominal aortic aneurysm. There is no evidence of intestinal obstruction. The appendix is normal. Stranding in the mesentery and left upper quadrant has improved in the interval. There is some persistent stranding around the mid abdominal enteric anastomosis. There is no free intraperitoneal air. The bladder is unremarkable. There is a minimal fluid collection in the pelvis adjacent to the rectosigmoid colon. It measures about 1.5 x 1.1 cm, smaller as compared to prior. There are nonenlarged lymph nodes in the groin which are unchanged, right more than left. IMPRESSION: Perisplenic fluid collection, possibly subcapsular, it is smaller as compared to the previous study, now measuring 3.7 x 2.3 x 3.1 cm. There is unchanged small left pleural effusion with scarring and or atelectasis in the left lower lobe. There is improved stranding in the abdominal mesentery in left upper quadrant. Some stranding/edema persists, most concentrated around the enteric anastomosis in the mid abdomen. Interval removal of left-sided drainage catheter. Tiny pelvic fluid collection is smaller as well.
== END 2018-04-11 06:22 | disposition home or self-care (01) ==
LOC: CT 06:21
PROVIDERS: ATTEND Surgery
DX: K65.1 Peritoneal abscess (principal); E78.00 Pure hypercholesterolemia, unspecified; J90 Pleural effusion, not elsewhere classified; G47.30 Sleep apnea, unspecified; Z82.49 Family history of ischemic heart disease and other diseases of the circulatory system
CPT/HCPCS: 36415; 74177; 80048; 82040; Q9967

== ENCOUNTER 2018-04-22 11:08 | Outpatient (CLI) | payer BC | END 2018-04-22 11:09 | disposition home or self-care (01) | LOC: WOUND 11:08 | PROVIDERS: ATTEND Surgery | DX: T81.89XD Other complications of procedures, not elsewhere classified, subsequent encounter (principal); I10 Essential (primary) hypertension; Y83.8 Other surgical procedures as the cause of abnormal reaction of the patient, or of later complication, without mention of misadventure at the time of the procedure | CPT/HCPCS: 99214; G0463 ==

== ENCOUNTER 2018-04-29 09:08 | Outpatient (CLI) | payer BC | END 2018-04-29 09:09 | disposition home or self-care (01) | LOC: WOUND 09:08 | PROVIDERS: ATTEND Surgery | DX: T81.89XD Other complications of procedures, not elsewhere classified, subsequent encounter (principal); I10 Essential (primary) hypertension; Y83.8 Other surgical procedures as the cause of abnormal reaction of the patient, or of later complication, without mention of misadventure at the time of the procedure | CPT/HCPCS: 99213; G0463 ==

== ENCOUNTER 2018-05-13 09:10 | Outpatient (CLI) | payer BC | END 2018-05-13 09:11 | disposition home or self-care (01) | LOC: WOUND 09:10 | PROVIDERS: ATTEND Surgery | DX: T81.89XD Other complications of procedures, not elsewhere classified, subsequent encounter (principal); I10 Essential (primary) hypertension; Y83.8 Other surgical procedures as the cause of abnormal reaction of the patient, or of later complication, without mention of misadventure at the time of the procedure | CPT/HCPCS: 99213; G0463 ==

== ENCOUNTER 2019-01-12 10:57 | Outpatient (CLI) | payer BC ==
[2019-01-12] MEDS ORDERED: CATAPRES ONE (12:44)
== END 2019-01-12 10:58 | disposition home or self-care (01) ==
LOC: ECHO 10:57
PROVIDERS: ATTEND Internal Medicine Cardiovascular Disease
DX: I08.1 Rheumatic disorders of both mitral and tricuspid valves (principal); E78.00 Pure hypercholesterolemia, unspecified; I10 Essential (primary) hypertension; M19.90 Unspecified osteoarthritis, unspecified site
CPT/HCPCS: 93306

== ENCOUNTER 2019-12-19 11:41 | Outpatient (CLI) | payer BC ==
[2019-12-19 12:09] LABS: Basophils % (Auto) 0.7 % (0.0-1.8); Eosinophils # (Auto) 0.3 K/mm3 (0.0-0.4); Eosinophils % (Auto) 5.1 % (0.0-4.3); Hematocrit 40.1 % (30.3-42.9); Hemoglobin 13.1 gm/dl (10.1-14.3); Lymphocytes # (Auto) 2.5 K/mm3 (1.2-5.4); Lymphocytes % (Auto) 46.3 % (13.4-35.0); Mean Corpuscular HGB Conc 33 % (30-34); Mean Corpuscular Volume 86 fl (79-97); Monocytes # (Auto) 0.4 K/mm3 (0.0-0.8); Monocytes % (Auto) 7.2 % (0.0-7.3); Platelet Count 290 K/mm3 (140-440); Red Blood Count 4.69 M/mm3 (3.65-5.03); Red Cell Distribution Width 14.4 % (13.2-15.2)
[2019-12-19 12:40] LABS: Alanine Aminotransferase 16 units/L (7-56); Albumin 4.2 g/dL (3.9-5); BUN/Creatinine Ratio 19; Blood Urea Nitrogen 17 mg/dL (7-17); Calcium 9.7 mg/dL (8.4-10.2); Chol/HDL Ratio 4.41 %; HDL Cholesterol 51 mg/dL (40-59); Hemolysis Index 2; LDL Cholesterol,Direct 168 mg/dL (50-130)
== END 2019-12-19 11:42 | disposition home or self-care (01) ==
LOC: LAB 11:41
PROVIDERS: ATTEND Internal Medicine Cardiovascular Disease
DX: I10 Essential (primary) hypertension (principal)
CPT/HCPCS: 36415; 80053; 80061; 84443; 85025

== ENCOUNTER 2019-12-26 10:26 | Outpatient (CLI) | payer BC | END 2019-12-26 10:27 | disposition home or self-care (01) | LOC: ECHO 10:26 | PROVIDERS: ATTEND Internal Medicine Cardiovascular Disease | DX: I08.8 Other rheumatic multiple valve diseases (principal); I10 Essential (primary) hypertension | CPT/HCPCS: 93306 ==

== ENCOUNTER 2020-04-23 12:03 | Outpatient (CLI) | payer BC ==
[2020-04-23 12:37] LABS: Basophils % (Auto) 0.7 % (0.0-1.8); Eosinophils # (Auto) 0.1 K/mm3 (0.0-0.4); Eosinophils % (Auto) 2.8 % (0.0-4.3); Hematocrit 36.6 % (30.3-42.9); Hemoglobin 12.5 gm/dl (10.1-14.3); Lymphocytes # (Auto) 2.2 K/mm3 (1.2-5.4); Lymphocytes % (Auto) 44.4 % (13.4-35.0); Mean Corpuscular HGB Conc 34 % (30-34); Mean Corpuscular Volume 87 fl (79-97); Monocytes # (Auto) 0.4 K/mm3 (0.0-0.8); Monocytes % (Auto) 8.4 % (0.0-7.3); Platelet Count 268 K/mm3 (140-440); Red Blood Count 4.22 M/mm3 (3.65-5.03); Red Cell Distribution Width 13.6 % (13.2-15.2)
[2020-04-23 13:37] LABS: BUN/Creatinine Ratio 19; Blood Urea Nitrogen 19 mg/dL (7-17)
[2020-04-23 13:38] LABS: Alanine Aminotransferase 19 units/L (7-56); Albumin 4.3 g/dL (3.9-5); Bilirubin,Direct 0.2 mg/dL (0-0.2)
[2020-04-23 13:39] LABS: Chol/HDL Ratio 2.39 %; HDL Cholesterol 46 mg/dL (40-59); Hemolysis Index 2; LDL Cholesterol,Direct 60 mg/dL (50-130)
[2020-04-23 14:46] LABS: Creatinine,Urine 110.6 mg/dL (0.1-20.0)
[2020-04-23 14:57] LABS: Microalbumin/Creatinine Ratio 10.8 ug/mg
== END 2020-04-23 12:04 | disposition home or self-care (01) ==
LOC: LAB 12:03
PROVIDERS: ATTEND Orthopaedic Surgery Orthopaedic Trauma
DX: I87.2 Venous insufficiency (chronic) (peripheral) (principal); R80.9 Proteinuria, unspecified; I10 Essential (primary) hypertension
CPT/HCPCS: 36415; 80053; 80061; 80076; 82043; 82306; 84443; 85025

== ENCOUNTER 2021-03-14 10:24 | Outpatient (CLI) | payer BC ==
[2021-03-14 11:00] LABS: Basophils % (Auto) 0.3 % (0.0-1.8); Eosinophils # (Auto) 0.2 K/mm3 (0.0-0.4); Eosinophils % (Auto) 2.9 % (0.0-4.3); Hematocrit 35.6 % (30.3-42.9); Hemoglobin 11.9 gm/dl (10.1-14.3); Lymphocytes # (Auto) 2.9 K/mm3 (1.2-5.4); Lymphocytes % (Auto) 45.9 % (13.4-35.0); Mean Corpuscular HGB Conc 34 % (30-34); Mean Corpuscular Volume 80 fl (79-97); Monocytes # (Auto) 0.7 K/mm3 (0.0-0.8); Monocytes % (Auto) 11.5 % (0.0-7.3); Platelet Count 247 K/mm3 (140-440); Red Blood Count 4.48 M/mm3 (3.65-5.03); Red Cell Distribution Width 13.6 % (13.2-15.2)
[2021-03-14 11:11] LABS: Alanine Aminotransferase 41 units/L (7-56); Albumin 3.8 g/dL (3.9-5); Blood Urea Nitrogen 14 mg/dL (7-17); Calcium 9.9 mg/dL (8.4-10.2); Chol/HDL Ratio 2.23 %; HDL Cholesterol 38 mg/dL (40-59); Hemolysis Index 5; LDL Cholesterol,Direct 41 mg/dL (50-130)
[2021-03-14 11:30] LABS: BUN/Creatinine Ratio 28
--- NOTE | 2021-03-14 11:38 | Mammography Report ---
DIGITAL SCREENING MAMMOGRAM WITH CAD, 03/14/2021 CLINICAL INFORMATION / INDICATION: Routine screening mammography. SCREENING MAMMOGRAM TECHNIQUE: Digital bilateral 2D mammography was obtained in the craniocaudal and mediolateral obliqu e projections. This examination was interpreted with the benefit of Computer-Aided Detection analysis . COMPARISON: None currently available. FINDINGS: Breast Density: The breasts are almost entirely fatty. No dominant mass, suspicious calcifications, or architectural distortion in either breast. IMPRESSION: No mammographic evidence of malignancy. Follow up recommendation: Routine yearly BI-RADS Category 1: Negative. A "normal" or negative report should not discourage follow up or biopsy of a clinically significant f inding. A written summary of these findings will be mailed to the patient. The patient will be entered into a mammography reporting system which will generate a reminder letter for the patient's next appointmen t at the appropriate interval. The [employer] recommends yearly mammograms starting at age 40 and continuing as l tarik as a woman is in good health. Breast MRI is recommended for women with an approximate 20-25% or greater lifetime risk of breast cancer, including women with a strong family history of breast or ova edis cancer or who have been treated for Hodgkin's disease. Signer Name: Torito Valerio MD Signed: 03/14/2021 11:34 AM Workstation Name: [id number]
== END 2021-03-14 10:25 | disposition home or self-care (01) ==
LOC: MAMMO 10:24
PROVIDERS: ATTEND Internal Medicine
DX: Z12.31 Encounter for screening mammogram for malignant neoplasm of breast (principal); E78.2 Mixed hyperlipidemia; I10 Essential (primary) hypertension; I87.2 Venous insufficiency (chronic) (peripheral)
CPT/HCPCS: 36415; 77067; 80053; 80061; 85025

== ENCOUNTER 2021-10-31 11:18 | Outpatient (CLI) | payer BC ==
[2021-10-31 12:18] LABS: Hematocrit 39.7 % (30.3-42.9); Hemoglobin 12.6 gm/dl (10.1-14.3); Mean Corpuscular HGB Conc 32 % (30-34); Mean Corpuscular Volume 81 fl (79-97); Platelet Count 231 K/mm3 (140-440); Red Blood Count 4.92 M/mm3 (3.65-5.03); Red Cell Distribution Width 13.8 % (13.2-15.2)
[2021-10-31 12:19] LABS: Alanine Aminotransferase 45 units/L (7-56); Albumin 3.7 g/dL (3.9-5); Blood Urea Nitrogen 16 mg/dL (7-17); Calcium 10.2 mg/dL (8.4-10.2); Chol/HDL Ratio 3.41 %; HDL Cholesterol 39 mg/dL (40-59); Hemolysis Index 9; LDL Cholesterol,Direct 82 mg/dL (50-130)
[2021-10-31 12:20] LABS: BUN/Creatinine Ratio 40
[2021-10-31 13:10] LABS: Hypochromasia 1+; Platelet Estimate Consistent w Auto; RBC Morphology Normal; Total Cells Counted 100
== END 2021-10-31 11:19 | disposition home or self-care (01) ==
LOC: LAB 11:18
PROVIDERS: ATTEND Internal Medicine
DX: Z00.00 Encounter for general adult medical examination without abnormal findings (principal); I10 Essential (primary) hypertension; E78.5 Hyperlipidemia, unspecified; R53.83 Other fatigue; E55.9 Vitamin D deficiency, unspecified
CPT/HCPCS: 36415; 80053; 80061; 82306; 83036; 84443; 85007; 85025

== ENCOUNTER 2022-03-16 09:32 | Outpatient (CLI) | payer BC | END 2022-03-16 09:33 | disposition home or self-care (01) | LOC: LAB 09:32 | PROVIDERS: ATTEND Internal Medicine | DX: E11.9 Type 2 diabetes mellitus without complications (principal) | CPT/HCPCS: 36415; 83036 ==

== ENCOUNTER 2022-04-17 08:58 | Outpatient (CLI) | payer BC ==
--- NOTE | 2022-04-20 15:17 | Mammography Report ---
DIGITAL SCREENING MAMMOGRAM WITH CAD, 04/17/2022 CLINICAL INFORMATION / INDICATION: Routine screening mammography. TECHNIQUE: Digital bilateral 2D mammography was obtained in the craniocaudal and mediolateral obliqu e projections. This examination was interpreted with the benefit of Computer-Aided Detection analysis . COMPARISON: 03/14/2021 FINDINGS: Breast Density: The breasts are almost entirely fatty. No dominant mass, suspicious calcifications, or architectural distortion in either breast. There has been no significant interval change. IMPRESSION: No mammographic evidence of malignancy. Follow up recommendation: Routine yearly screening mammogram. BI-RADS Category 1: NEGATIVE A "normal" or negative report should not discourage follow up or biopsy of a clinically significant f inding. A written summary of these findings will be mailed to the patient. The patient will be entered into a mammography reporting system which will generate a reminder letter for the patient's next appointmen t at the appropriate interval. The [employer] recommends yearly mammograms starting at age 40 and continuing as l tarik as a woman is in good health. Breast MRI is recommended for women with an approximate 20-25% or greater lifetime risk of breast cancer, including women with a strong family history of breast or ova edis cancer or who have been treated for Hodgkin's disease. Signer Name: Keenan Christina MD Signed: 04/20/2022 3:11 PM Workstation Name: [id number]
== END 2022-04-17 08:59 | disposition home or self-care (01) ==
LOC: MAMMO 08:58
PROVIDERS: ATTEND Internal Medicine
DX: Z12.31 Encounter for screening mammogram for malignant neoplasm of breast (principal)
CPT/HCPCS: 77067